=== PATIENT | female | born 1950 | race Caucasian/White ===

== ENCOUNTER 2017-02-08 11:30 | Outpatient (CLI) | payer MEDICARE ==
[2017-02-08 12:10] LABS: #Basophils 0.2 thou/uL (0.0-0.2); #Eosinphils 0.4 thou/uL (0.0-0.7); #Lymphocytes 2.5 thou/uL (1.20-3.40); #Neutrophils 7.8 thou/uL (1.40-6.50); %Basophils 1.4 % (0.0-1.0); %Eosinophils 3.7 % (0.0-10.0); %Lymphocytes 20.8 % (21.0-51.0); %Monocytes 8.7 % (0.0-10.0); %Neutrophils 65.4 % (42.0-75.0); Hemoglobin 15.2 g/dL (12.0-16.0); Mean Corpuscular HGB CONC 33.3 g/dL (32.0-36.0); Mean Corpuscular Hemoglobin 32.7 pg (27.0-31.0); Mean Corpuscular Volume 98.2 fl (81.0-99.0); Mean Platelet Volume 5.7 fL (7.4-10.4); Platelet Count 395 thou/uL (130-400); RBC Distribution Width 12.7 % (11.5-14.5); Red Blood Cell (RBC) Count 4.65 mill/uL (4.20-5.40); White Blood Cell (WBC) Count 11.9 thou/uL (4.8-10.8)
[2017-02-08 12:37] LABS: ALT (SGPT) 27 U/L (8-55); AST (SGOT) 27 U/L (5-34); Alkaline Phosphatase 105 U/L (40-150); Anion Gap 16 mmol/L (10-20); BUN (Urea Nitrogen) 9 mg/dL (9.8-20.1); Bilirubin, Total 0.5 mg/dL (0.2-1.2); Calc. Creatinine Clearance 0 mL/min (70-130); Calcium 9.3 mg/dL (7.8-10.44); Cardiac Risk 3.6 (Less than 4.5); Chloride 105 mmol/L (98-107); Cholesterol 213 mg/dl (< 200 Desired); Estimated GFR-MDRD 82; Globulin 3.5 g/dL (2.4-3.5); Glucose 85 mg/dL (80-115); HDL Cholesterol 59 mg/dL (>60 Neg Risk); LDL Cholesterol, Calculated 133 mg/dL; Potassium 4.3 mmol/L (3.5-5.1); Protein, Total 7.5 g/dL (6.0-8.3); Sodium 142 mmol/L (136-145); Triglycerides 105 mg/dL (Less than 150)
--- NOTE | 2017-02-08 14:58 | RAD ---
CHEST TWO VIEWS: HISTORY: Pre-op. COMPARISON: 10/17/2015. FINDINGS: Cardiac silhouette and pulmonary vasculature are unremarkable. Lungs remain well-inflated. There is no confluent air space consolidation, pneumothorax, or pleural fluid apparent. Calcifications demon strated within the aorta. IMPRESSION: 1. Atherosclerosis. 2. Stable radiograph appearance of the chest. POS: [facility]
[2017-02-08 20:10] LABS: Carbon Dioxide 25 mmol/L (23-31)
== END 2017-02-08 11:31 | disposition home or self-care (01) ==
LOC: MADRAD 11:30
PROVIDERS: ATTEND Family Medicine
DX: Z01.810 Encounter for preprocedural cardiovascular examination (principal); E03.9 Hypothyroidism, unspecified; I70.90 Unspecified atherosclerosis
CPT/HCPCS: 36415; 71020; 80053; 80061; 84443; 85025

== ENCOUNTER 2017-06-03 18:04 | Emergency (ER) | payer MEDICARE ==
[~2017-06-03 18:04] MED LIST: Iopamidol 370 76% 125 ML VIAL FS ONE; Sodium Chloride 0.9% 1,000 ML BAG ONE
[2017-06-03] MEDS ORDERED: Acetaminophen 500 MG TAB ONE (18:54)
[2017-06-03] MEDS ORDERED: Ondansetron ODT 4 MG TAB ONE (19:02)
[2017-06-03] MEDS ORDERED: Ibuprofen 800 MG TAB ONE (20:05)
[2017-06-03] MEDS ORDERED: Fentanyl 100 MCG/2 ML VIAL ONE (20:35)
[2017-06-03] MEDS ORDERED: Metoclopramide HCl 10 MG/2 ML VIAL ONE (20:35)
[2017-06-03 20:54] LABS: Troponin I 0.011 ng/mL (< 0.028)
[2017-06-03 20:58] LABS: Anion Gap 21 mmol/L (10-20); BUN (Urea Nitrogen) 9 mg/dL (9.8-20.1); Calc. Creatinine Clearance 0 mL/min (70-130); Calcium 9.1 mg/dL (7.8-10.44); Carbon Dioxide 18 mmol/L (23-31); Chloride 101 mmol/L (98-107); Estimated GFR-MDRD 76; Glucose 93 mg/dL (80-115); Potassium 4.4 mmol/L (3.5-5.1); Sodium 136 mmol/L (136-145)
[2017-06-03 21:00] LABS: Band 3 % (5-11); Hemoglobin 15.4 g/dL (12.0-16.0); Lymphocytes 3 % (21-51); MDiff Complete? YES; Mean Corpuscular HGB CONC 33.9 g/dL (32.0-36.0); Mean Corpuscular Hemoglobin 31.7 pg (27.0-31.0); Mean Corpuscular Volume 93.4 fl (81.0-99.0); Mean Platelet Volume 5.1 fL (7.4-10.4); Monocytes 11 % (0-10); Neutrophil 83 % (42-75); PLT Morphology Comment Appears Adequate; Platelet Count 253 thou/uL (130-400); RBC Distribution Width 12.3 % (11.5-14.5); RBC Morphology Normal; Red Blood Cell (RBC) Count 4.85 mill/uL (4.20-5.40)
[2017-06-03 21:13] LABS: Bilirubin Moderate (Negative); Blood, Urine Small (Negative); Clarity Clear (Clear); Glucose, Urine (Dipstick) Negative (Negative); Leukocyte Negative (Negative); Nitrite Negative (Negative); Protein, Urine (Dipstick) 30 mg/dL (Neg-Trace); Specific Gravity, Urine 1.025 (1.005-1.030); Urobilinogen 0.2 mg/dL (0.2-1.0); pH, Urine 5.5 (5.0-9.0)
--- NOTE | 2017-06-03 21:17 | RAD ---
FRONTAL VIEW CHEST: 06/03/17 Reference made to prior chest radiograph dating back to September 2015. CLINICAL HISTORY: Cough. FINDINGS: There is a subtle curvilinear density at the right lower lung zone. The cardiac silhouette is mildly prominent. No obvious effusion or discrete pneumothorax. There is vascular calcification. No signific ant vascular congestion. Osseous degenerative change present. IMPRESSION: 1. No lobar consolidation. 2. Mild curvilinear density right lower lung zone. This could relate to accentuation of a perihi lar vessel. Alternatively, curvilinear region of atelectasis versus pulmonary nodule are consideratio ns. A followup, nonemergent two view chest radiograph is necessary to confirm resolution. Code T POS: [facility]
[2017-06-03 21:18] LABS: Bacteria/HPF None Seen HPF (None Seen); Squamous Epithelial 0-3 HPF (0-3); WBC/HPF 0-3 HPF (0-3)
[2017-06-03] MEDS ORDERED: Ondansetron HCl/PF 4 MG/2 ML Vial ONE (22:19)
--- NOTE | 2017-06-03 22:47 | CT ---
CTA THORAX WITH CONTRAST: 06/03/17 at 10:05 p.m. (Computed Tomographic Angiography, chest(noncoronary) with contrast material, and image postprocessin g) (PE protocol) HISTORY: 66-year-old female with cough. COMPARISON: None. TECHNIQUE: IV injection of iodinated contrast: Administered. Scan acquisition timing attempted to coincide with iodinated contrast bolus reaching maximal density in pulmonary arteries. 3D MIP reconstructions. FINDINGS: The images are significantly degraded by breathing or coughing motion artifact. Therefore, it is diff icult to evaluate for pulmonary thromboembolism involving the mid and distal branches of bilateral pu lmonary arteries. There is no thrombus in the pulmonic trunk, left and right main pulmonary arteries, or their proximal branches. No thoracic aortic aneurysm or dissection. Multiple mildly enlarged medi astinal lymph nodes and bilateral hilar lymph nodes. No pleural effusion or pneumothorax. Difficult t o evaluate the pulmonary interstitium because of breathing motion artifact, but there is no consolida tion. There are plate-like densities in the lingula which could be scar or subsegmental atelectasis. No pleural effusion or pneumothorax. Trachea and major bronchi are patent and clear. There is a large posterior gastric diverticulum filled with air and fluid, protruding from the gastric fundus. The re st of the visualized upper stomach is contracted. Diffusely low hepatic attenuation is consistent wit h fatty liver. There is a 2.5 x 3 x 1.5 cm solid enhancing right adrenal nodule. IMPRESSION: 1. No central pulmonary thromboembolism. 2. Difficult to evaluate for peripheral branch pulmonary thromboembolism because of significant breathing or coughing motion artifact. 3. Right adrenal mass. Recommend multiphase CT of abdomen with and without contrast, adrenal pro tocol, on an elective, outpatient basis. 4. Large posterior gastric diverticulum. 5. Hepatic steatosis. 6. Nonspecific mild mediastinal and hilar lymphadenopathy. jn[] POS: [facility]
== END 2017-06-03 23:20 | disposition home or self-care (01) ==
LOC: MADERS 18:04
DX: J20.9 Acute bronchitis, unspecified (principal); R11.0 Nausea; E03.9 Hypothyroidism, unspecified; I10 Essential (primary) hypertension; F17.210 Nicotine dependence, cigarettes, uncomplicated
CPT/HCPCS: 71045; 71275; 80048; 81003; 81015; 82553; 83880; 84484; 85025; 85379; 87040; 87086; 87804; 94760; 96361; 96374; 96375; J2405; J2765; J3010; J7050; Q0162

== ENCOUNTER 2018-06-23 12:24 | Outpatient (CLI) | payer MEDICARE ==
--- NOTE | 2018-06-23 12:59 | RAD ---
Right wrist 2 views: 06/23/2018 COMPARISON: None HISTORY: Closed fracture of distal right ulna FINDINGS: There is a volar screw and plate fixation associated with the distal right radius. Radiocar pal joint space narrowing. No evidence for dislocation. There is cortical irregularity consistent with impaction fracture of the distal right ulna. A fractur e line is seen dorsally on the lateral view. Fracture is not well seen on frontal imaging and no comparison imaging is available. Findings suggest healing impaction fracture of distal right ulna. No acute fracture noted. IMPRESSION: Postoperative and degenerative changes as detailed above. Distal right ulnar fracture.
== END 2018-06-23 12:25 | disposition home or self-care (01) ==
LOC: MADRAD 12:24
PROVIDERS: ATTEND Orthopaedic Surgery
DX: S52.601A Unspecified fracture of lower end of right ulna, initial encounter for closed fracture (principal); M19.031 Primary osteoarthritis, right wrist; Z98.890 Other specified postprocedural states

== ENCOUNTER 2023-01-24 15:42 | Emergency (ER) | payer MEDICARE ==
[2023-01-24] MEDS ORDERED: Acetaminophen 325 MG TAB ONE (16:14)
== END 2023-01-24 17:10 | disposition home or self-care (01) ==
LOC: MADERS 15:42
DX: S83.91XA Sprain of unspecified site of right knee, initial encounter (principal); R03.0 Elevated blood-pressure reading, without diagnosis of hypertension; I10 Essential (primary) hypertension; F17.210 Nicotine dependence, cigarettes, uncomplicated; X50.1XXA Overexertion from prolonged static or awkward postures, initial encounter

== ENCOUNTER 2023-01-27 09:31 | Emergency (ER) | payer MEDICARE | END 2023-01-27 10:37 | disposition short-term general hospital (02) | LOC: MADERS 09:31 | DX: R60.9 Edema, unspecified (principal); I10 Essential (primary) hypertension; F17.210 Nicotine dependence, cigarettes, uncomplicated | CPT/HCPCS: 99284 ==

== ENCOUNTER 2025-01-30 14:38 | Outpatient (CLI) | payer MEDICARE, OTHER | END 2025-01-30 14:39 | disposition home or self-care (01) | LOC: MADRAD 14:38 | DX: R04.2 Hemoptysis (principal); J98.4 Other disorders of lung | CPT/HCPCS: 71046 ==